=== PATIENT | female | born 1985 | race Caucasian/White ===

== ENCOUNTER → 2020-09-25 | Outpatient (CLI) | payer OTHER ==
[2020-09-25 12:24] LABS: APPEARANCE, URINE CLEAR (CLEAR); BACTERIA, URINE AUTO NEGATIVE (NEGATIVE); BILIRUBIN, URINE AUTO NEGATIVE (NEGATIVE); BLOOD, URINE BLOOD NEGATIVE (NEGATIVE); COLOR, URINE STRAW (YELLOW); GLUCOSE, URINE (UA) AUTO NEGATIVE (NEGATIVE); KETONE, URINE AUTO NEGATIVE (NEGATIVE); LEUKOCYTE ESTERASE, URINE AUTO NEGATIVE (NEGATIVE); NITRITE, URINE AUTO NEGATIVE (NEGATIVE); PROTEIN, URINE AUTO NEGATIVE (NEGATIVE); RBC, URINE AUTO 0 /HPF (0-3); SPECIFIC GRAVITY URINE AUTO 1.002 (1.002-1.035); SQUAMOUS EPITHELIAL CELL UR AU 1 /HPF (0-6); UROBILINOGEN, URINE AUTO 0.2 mg/dL (0.0-2.0); WBC, URINE AUTO 0 /HPF (0-3)
[2020-09-25 12:26] LABS: BASO % 0.3 % (0.0-1.0); EOS # 0.1 10^3/uL (0.0-0.5); EOS % 1.2 % (0.0-3.0); HEMATOCRIT 32.6 % (36.0-47.0); HEMOGLOBIN 10.5 g/dl (12.0-15.5); LYMPH # 2.1 10^3/uL (1.5-5.0); LYMPH % 32.6 % (24.0-44.0); MEAN CORPUSCULAR HEMOGLOBIN 26.6 pg (27.0-33.0); MEAN CORPUSCULAR HGB CONC 32.2 g/dl (32.0-36.5); MEAN CORPUSCULAR VOLUME 82.5 fl (80.0-96.0); MONO # 0.4 10^3/uL (0.0-0.8); NEUTROPHILS # 3.8 10^3/uL (1.5-8.5); NEUTROPHILS % 59.6 % (36.0-66.0); PLATELET COUNT, AUTOMATED 261 10^3/uL (150-450); RED BLOOD COUNT 3.95 10^6/uL (4.00-5.40); WHITE BLOOD COUNT 6.5 10^3/uL (4.0-10.0)
[2020-09-25 12:50] LABS: HCG, SERUM QUALITATIVE NEGATIVE (NEGATIVE)
[2020-09-25 12:53] LABS: ALBUMIN 3.5 GM/DL (3.2-5.2); ALT/SGPT 28 U/L (12-78); BILIRUBIN,TOTAL 0.2 MG/DL (0.2-1.0); BLOOD UREA NITROGEN 7 MG/DL (7-18); CALCIUM LEVEL 9.5 MG/DL (8.5-10.1); CARBON DIOXIDE LEVEL 25 MEQ/L (21-32); CHLORIDE LEVEL 106 MEQ/L (98-107); CREATININE FOR GFR 0.39 MG/DL (0.55-1.30); GLOMERULAR FILTRATION RATE > 60.0 (>60); GLUCOSE, FASTING 88 MG/DL (70-100); POTASSIUM SERUM 3.9 MEQ/L (3.5-5.1); SODIUM LEVEL 136 MEQ/L (136-145); THYROID STIMULATING HORMONE 0.006 uIU/ML (0.358-3.740); TOTAL PROTEIN 7.4 GM/DL (6.4-8.2)
[2020-09-25 13:06] LABS: HEPATITIS B SURFACE ANTIGEN NEGATIVE (NEGATIVE)
[2020-09-25 13:33] LABS: HEPATITIS B CORE ANTIBODY IGM NEGATIVE (NEGATIVE)
[2020-09-25 13:35] LABS: HEPATITIS A ANTIBODY IGM NEGATIVE (NEGATIVE)
[2020-09-25 13:42] LABS: HEPATITIS C VIRUS ABY INDEX > 11.0 INDEX (<0.8)
== END ==
LOC: M LAB 11:31
PROVIDERS: ATTEND Physician Assistant Medical
DX: Z02.2 Encounter for examination for admission to residential institution (principal); E03.9 Hypothyroidism, unspecified

== ENCOUNTER → 2020-10-22 | Outpatient (REF) | payer OTHER ==
[2020-10-22 11:21] LABS: HEMATOCRIT 33.3 % (36.0-47.0); HEMOGLOBIN 10.9 g/dl (12.0-15.5); MEAN CORPUSCULAR HEMOGLOBIN 27.5 pg (27.0-33.0); MEAN CORPUSCULAR HGB CONC 32.7 g/dl (32.0-36.5); MEAN CORPUSCULAR VOLUME 83.9 fl (80.0-96.0); PLATELET COUNT, AUTOMATED 214 10^3/uL (150-450); RED BLOOD COUNT 3.97 10^6/uL (4.00-5.40)
[2020-10-22 13:03] LABS: THYROID STIMULATING HORMONE 0.036 uIU/ML (0.358-3.740)
[2020-10-22 13:44] LABS: HIV 1&2 SCREEN CENTAUR NEGATIVE (NEGATIVE)
[2020-10-22 13:46] LABS: HEPATITIS C VIRUS ABY INDEX > 11.0 INDEX (<0.8)
== END ==
LOC: M PLALAB 08:36
PROVIDERS: ATTEND Advanced Practice Midwife
DX: Z34.92 Encounter for supervision of normal pregnancy, unspecified, second trimester (principal); F19.21 Other psychoactive substance dependence, in remission

== ENCOUNTER → 2020-11-12 | Outpatient (CLI) | payer OTHER ==
--- NOTE | 2020-11-12 13:58 | REP ---
INDICATION: ANATOMY COMPARISON: None. TECHNIQUE: Transabdominal obstetrical ultrasound with color Doppler evaluation. FINDINGS: Examination demonstrates a single live intrauterine in breech presentation. motion is identified by technologist. Placenta is noted posterior and grade 0 without evidence for placenta previa or abruption. Amniotic fluid volume is normal. Cervix measures 3.1 cm in length and appears closed.. Selected gestational age: Twenty-two weeks 3 days with RIANA 03/15/2021. Gestational age by current measurements 21 weeks 4 days with RIANA 03/21/2021. FHR equals 136 beats per minute. Estimated weight 445 grams (15thpercentile). Anatomical assessment demonstrates normal structures including cranium, choroid plexus, cavum, cerebellum/posterior fossa, facial features, lungs, diaphragm, stomach, cord insertion/three-vessel cord, kidneys/bladder, spine, and extremities. IMPRESSION: 1. Single live intrauterine in breech presentation demonstrating appropriate estimated weight. 2. Limited evaluation of the heart/ventricular outflow tracts noted. Remainder of the anatomical assessment is complete and normal. <Electronically signed by Keith Petersen > 11/12/20 [id number]
== END ==
LOC: M WHC 10:26
PROVIDERS: ATTEND Advanced Practice Midwife
DX: Z34.92 Encounter for supervision of normal pregnancy, unspecified, second trimester (principal); Z3A.22 22 weeks gestation of pregnancy

== ENCOUNTER → 2020-12-05 | Outpatient (CLI) | payer OTHER ==
[2020-12-05 13:54] LABS: HEMATOCRIT 34.3 % (36.0-47.0); HEMOGLOBIN 11.6 g/dl (12.0-15.5); MEAN CORPUSCULAR HEMOGLOBIN 29.6 pg (27.0-33.0); MEAN CORPUSCULAR HGB CONC 33.8 g/dl (32.0-36.5); MEAN CORPUSCULAR VOLUME 87.5 fl (80.0-96.0); PLATELET COUNT, AUTOMATED 155 10^3/uL (150-450); RED BLOOD COUNT 3.92 10^6/uL (4.00-5.40); WHITE BLOOD COUNT 6.9 10^3/uL (4.0-10.0)
[2020-12-05 15:52] LABS: GC DNA AMPLIFICATION NEGATIVE (NEGATIVE)
== END ==
LOC: M LAB 11:45
PROVIDERS: ATTEND Advanced Practice Midwife
DX: Z36.89 Encounter for other specified antenatal screening (principal); Z3A.23 23 weeks gestation of pregnancy

== ENCOUNTER 2021-01-16 15:51 | Outpatient (CLI) | payer OTHER ==
[~2021-01-16] VITALS: Ht 165.1 cm; Wt 76.7 kg
[2021-01-16] MEDS ORDERED: PRENTAB9 PO (16:27)
[2021-01-16] MEDS ORDERED: BENA25CA4 PO (16:27)
[2021-01-16] MEDS ORDERED: METH-1177 PO (16:27)
[2021-01-16] MEDS ORDERED: GABA600T4 PO (16:27)
[2021-01-16] MEDS ORDERED: ACET-897 PO (16:27)
[2021-01-16 16:30] VITALS: BP 106/63
--- NOTE | 2021-01-16 17:27 | REP ---
INDICATION: abdominal pain, enlarged spleen?. COMPARISON: None. TECHNIQUE: Real-time sonographic evaluation of ABDOMEN performed. FINDINGS: The gallbladder demonstrates no evidence of intraluminal sludge or calculi, wall thickening or pericholecystic fluid. There is no intrahepatic or extrahepatic biliary dilatation, common bile duct measures 4 mm in maximum diameter. Liver demonstrates a hyperechoic nodule in the right lobe, well-defined, 1.4 cm in diameter. This is most consistent with a hemangioma. The visualized pancreas is grossly unremarkable, not optimally seen due to overlying bowel gas. Spleen is enlarged, with no intrinsic abnormality, measuring 13.9 x 4.8 x 13.7 cm, splenic index is 914. There is no evidence of hydronephrosis, cyst, mass, or calculus in either kidney. The right kidney measures 10.4 x 5.2 x 5.4 cm. Left renal dimensions are 10.9 x 5.5 x 6.1 cm. The abdominal aorta is not visualized. No free fluid is seen. The patient is prior at approximately 31-32 weeks gestational age. heart rate 131 beats per minute. IMPRESSION: Splenomegaly. Hyperechoic nodule in the right lobe of the liver most likely represents a hemangioma 1.4 cm in diameter. <Electronically signed by Mike Lemon > 01/16/21 [id number]
--- NOTE | 2021-01-16 18:59 | IPNPDOC ---
Text Note Date of Service The patient was seen on 01/16/21. NOTE Outpatient 35yo RIANA 03/[birth year] presents at 31w5d with complaints of continued abdominal pain. Was seen this week by Dr Morfin who suspected splenic enlargement, ordering an abdominal ultrasound. First available appt is 01/26. Hx significant for previous IV drug use, chronic hepatitis C. Denies UC, bleeding or LOF. Fetus is active. NST reassuring for gestation. , sono ordered. Enlarged spleen noted along with right liver lobe nodule, 1.4cm Discharged home with instructions. Keep next appt. Digna Bhatt CNM Jan 16, 2021 16:29
== END 2021-01-16 18:03 | disposition home or self-care (01) ==
LOC: M LDO 15:51
PROVIDERS: ATTEND Advanced Practice Midwife
DX: O26.893 Other specified pregnancy related conditions, third trimester (principal); R16.1 Splenomegaly, not elsewhere classified; Z3A.31 31 weeks gestation of pregnancy; O98.413 Viral hepatitis complicating pregnancy, third trimester; B19.20 Unspecified viral hepatitis C without hepatic coma; Z88.8 Allergy status to other drugs, medicaments and biological substances; O09.523 Supervision of elderly multigravida, third trimester

== ENCOUNTER → 2021-02-16 | Outpatient (REF) | payer OTHER ==
[~2021-02-16] MED LIST: ACET-897 PO; BENA25CA4 PO; GABA600T4 PO; METH-1177 PO; PRENTAB9 PO
== END ==
LOC: M SFHCWAGY 14:55
PROVIDERS: ATTEND Specialist
DX: Z34.83 Encounter for supervision of other normal pregnancy, third trimester (principal)

== ENCOUNTER 2021-02-21 18:31 | Outpatient (CLI) | payer OTHER ==
[~2021-02-21] VITALS: Ht 165.1 cm; Wt 81.7 kg
[2021-02-21 20:11] VITALS: BP 130/78
[2021-02-21] MEDS ORDERED: PROZ20CA11 PO (21:45)
[2021-02-21] MEDS ORDERED: HOME MED LIST COMPLETE! XX SCH (21:50)
--- NOTE | 2021-02-22 00:14 | IPNPDOC ---
Obstetrical Progress Note Date of Service Feb 21, 2021 Subjective 36yo at 36+6 weeks EGA. Presents for a labor check. Reports abdominal pain, mainly upper. No loss of fluid or vaginal bleeding. Reports regular, frequent movement. ROS: No STEPHENS, visual changes, RUQ pain, sob, cp, n/v/f/c. Patient is able to walk and stand comfortably. complications: Splenomegaly, history of drug abuse and hepatitis C, poor IV access No significant changes to her history since her last visit other than the complaint noted above O: Normotensive, normal HR, afebrile General: Patient is comfortable appearing, standing in her room and appeared agitated and requesting to leave after having waited to be evaluated Abd: soft,nt,nd, no fundal tenderness, nonacute, no guarding or rebound tenderness, no flank pain/CVA tenderness SVE: 0-1 cm, 25 %, -3, cephalic, intact EFM: Cat I / Reactive [place]: Contractions not traced very well on external monitor; irregular, not frequent A/P: 37yo at 36+6 weeks EGA. No evidence of active labor or ROM. Reassuring maternal and status. -Routine third trimester precautions given. -Follow up in office as scheduled. Ravin Villa DO FACOG. Objective Vital Signs Date Time Temp Pulse Resp B/P (MAP) Pulse Ox O2 Delivery O2 Flow Rate FiO2 02/21/21 20:11 97.3 70 18 130/78 (95) CHANELL VILLA DO Feb 22, 2021 00:14
== END 2021-02-21 21:25 | disposition home or self-care (01) ==
LOC: M LDO 18:31 → M LDI 19:05 → M LDO 21:25
PROVIDERS: ATTEND Obstetrics & Gynecology
DX: O26.893 Other specified pregnancy related conditions, third trimester (principal); R10.9 Unspecified abdominal pain; R16.1 Splenomegaly, not elsewhere classified; O98.413 Viral hepatitis complicating pregnancy, third trimester; B19.20 Unspecified viral hepatitis C without hepatic coma; Z88.8 Allergy status to other drugs, medicaments and biological substances; O09.523 Supervision of elderly multigravida, third trimester; Z3A.36 36 weeks gestation of pregnancy